=== PATIENT | male | born 1985 | race African-American/Black ===

== ENCOUNTER 2024-11-21 13:17 | Emergency (ER) | payer SELFPAY | END 2024-11-21 14:41 | LOC: ERS 13:17 | DX: S93.402A Sprain of unspecified ligament of left ankle, initial encounter (principal); F17.210 Nicotine dependence, cigarettes, uncomplicated; X58.XXXA Exposure to other specified factors, initial encounter; Y93.01 Activity, walking, marching and hiking | CPT/HCPCS: 99283 ==